=== PATIENT | male | born 2000 | race Caucasian/White ===

== ENCOUNTER 2023-12-07 09:40 | Emergency (ER) | payer MEDICAID ==
[~2023-12-07] VITALS: Ht 193 cm; Wt 123.0 kg
[2023-12-07 09:46] VITALS: O2SAT 98
[2023-12-07 11:18] LABS: BASOPHILS % 0.2 % (0.0-2.0); HEMATOCRIT. 41.1 % (42.0-52.0); HEMOGLOBIN. 14.6 g/dL (14.0-18.0); LYMPHOCYTES % 10.4 % (20.0-50.0); MEAN CORPUSCULAR HEMOGLOBIN 33.1 pg (28.0-32.0); MEAN CORPUSCULAR HGB CONC 35.5 g/dL (31.0-37.0); MEAN CORPUSCULAR VOLUME 93.3 fL (80.0-94.0); MEAN PLATELET VOLUME 9.1 fl (7.4-10.4); MONOCYTES % 8.2 % (2.0-8.0); NEUTROPHILS % 79.2 % (40.0-76.0); PLATELET 179 x1000/uL (130-400); RED CELL DISTRIBUTION WIDTH 13.7 % (11.6-14.6); WHITE BLOOD COUNT 11.3 x1000/uL (4.5-11.0)
[2023-12-07 11:36] LABS: ALANINE AMINOTRANSFERASE 137 IU/L (10-49); ALBUMIN 5.4 g/dL (3.2-4.8); ASPARTATE AMINOTRANSFERASE 107 IU/L (<34); BILIRUBIN TOTAL 0.6 mg/dL (0.1-1.0); CALCIUM 9.3 mg/dL (8.7-10.4); CARBON DIOXIDE 26 mEq/L (21-32); CHLORIDE 101 mEq/L (98-107); CREATININE 0.7 mg/dL (0.6-1.3); GLUCOSE 90 mg/dL (70-105); POTASSIUM 3.5 mEq/L (3.5-5.1); PROTEIN TOTAL 8.2 g/dL (6.0-8.3); SODIUM 136 mEq/L (136-145); UREA NITROGEN BLOOD 10 mg/dL (9-23)
[2023-12-07] MEDS: TETANUS, DIPHTHERIA, PERTUSSIS VAC/PF 0.5ML (>10YR OLD) IM ONE (12:22)
[2023-12-07] MEDS: CEFTRIAXONE 1GM/50ML 50 ML IV ONE (12:23)
[2023-12-07] MEDS: KETOROLAC 15MG/ML VIAL IV ONE (12:24)
[2023-12-07] MEDS ORDERED: SULF1TAB48 MT (13:39)
[2023-12-07] MEDS ORDERED: CEPH500T MT (13:39)
[2023-12-07 14:41] VITALS: BP 125/76; PULSE 96; RESP 16; TEMP 98.5
== END 2023-12-07 14:43 | disposition home or self-care (01) ==
LOC: ER 10:07
DX: L03.115 Cellulitis of right lower limb (principal)
CPT/HCPCS: 80053; 85025; 36415; 93971; 90715; 90471; 96365; 96375; 99285; J0696; J1885; Z7610 ×3